=== PATIENT | male | born 1970 | race American Indian/Alaskan Native ===

== ENCOUNTER 2019-08-01 15:20 | Emergency (ER) | payer SELFPAY ==
[2019-08-01 15:29] VITALS: BP 139/92
[2019-08-01 17:24] LABS: Basophils # (Auto) 0.1 K/mm3 (0.0-0.1); Basophils % (Auto) 0.7 % (0.0-1.8); Eosinophils % (Auto) 0.4 % (0.0-4.3); Hematocrit 43.7 % (35.5-45.6); Hemoglobin 14.7 gm/dl (11.8-15.2); Lymphocytes % (Auto) 23.2 % (13.4-35.0); Mean Corpuscular HGB Conc 34 % (32-34); Mean Corpuscular Volume 99 fl (84-94); Monocytes # (Auto) 0.5 K/mm3 (0.0-0.8); Monocytes % (Auto) 6.1 % (0.0-7.3); Platelet Count 396 K/mm3 (140-440); Red Blood Count 4.42 M/mm3 (3.65-5.03); Red Cell Distribution Width 13.7 % (13.2-15.2)
[2019-08-01 17:36] LABS: Creatine Kinase MB 1.2 ng/mL (0.0-4.0)
[2019-08-01 17:38] LABS: Alanine Aminotransferase 25 units/L (7-56); Albumin 4.9 g/dL (3.9-5); BUN/Creatinine Ratio 19; Blood Urea Nitrogen 17 mg/dL (9-20); Calcium 9.2 mg/dL (8.4-10.2); Hemolysis Index 2
[2019-08-01] MEDS ORDERED: KETOROLAC 60 MG/2 ML INJ IM ONE (20:26)
[2019-08-01] MEDS ORDERED: FAMOTIDINE 20 MG TAB PO ONE (20:26)
--- NOTE | 2019-08-01 21:36 | Cat Scan Report ---
CT head/brain wo con INDICATION / CLINICAL INFORMATION: 48 years Male; fall down 3 stairs while drunk, b/l arm numbness. TECHNIQUE: Routine CT head without contrast. All CT scans at this location are performed using CT dos e reduction for ALARA by means of automated exposure control. COMPARISON: None. FINDINGS: BRAIN / INTRACRANIAL CONTENTS: No acute hemorrhage, mass effect, midline shift, hydrocephalus, or acu te, large territorial infarct. No chronic infarct or atrophy appreciated. No significant white matter abnormality. CRANIOCERVICAL JUNCTION: No significant abnormality. ORBITS: No significant abnormality of visualized orbits. SINUSES / MASTOIDS: No significant abnormality the visualized paranasal sinuses or mastoid air cells. ADDITIONAL FINDINGS: None. IMPRESSION: 1. No focal mass, hemorrhage, hydrocephalus, or acute, large territorial infarct. Signer Name: Shay Deleon MD, III Signed: 08/01/2019 9:32 PM Workstation Name: [id number]
--- NOTE | 2019-08-01 21:37 | Emergency Department Report ---
ED Syncope HPI - General Chief Complaint: Syncope Stated Complaint: FELL DOWN STAIRS Time Seen by Provider: 08/01/19 20:01 Source: patient Exam Limitations: no limitations - History of Present Illness Initial Comments: 48-year-old male with a past medical history of hypertension presents to the hospital planing of syncope versus fall last evening. Patient states he typically drinks only on weekends but since quarantine due to coronavirus has been drinking daily. He admits to having 6-10 shots last night and was intoxicated. He fell or passed out while going down 3 stairs and was found on the ground by his children. His children reported to him that they were unable to wake him and therefore they placed him in the bed. Patient woke up in the bed today with pain to shoulders, neck, posterior thoracic area as well as paresthesias/numbness to the arms and pain/right arm weakness. Patient denies headache, blurry vision, nausea vomiting, chest pain, shortness of breath, abdominal pain, lower back pain, lower extremity symptoms. Patient denies history of EtOH withdrawal tremors or seizures. Patient denies drug use. Pt is right hand dominant - Related Data Allergies/Adverse Reactions: Allergies No Known Allergies Allergy (Unverified 08/01/19 15:27) Home Medications: Ambulatory Orders Famotidine [Pepcid] 20 mg PO BID #30 tablet 08/01/19 Ibuprofen [Motrin] 600 mg PO Q8H PRN #30 tablet 08/01/19 ED Review of Systems ROS: Stated complaint: FELL DOWN STAIRS Other details as noted in HPI Comment: All other systems reviewed and negative ED Past Medical Hx - Past Medical History Previous Medical History?: Yes Hx Hypertension: Yes - Surgical History Past Surgical History?: No - Social History Smoking Status: Current Every Day Smoker Substance Use Type: None - Medications Home Medications: Home Medications Medication Instructions Recorded Confirmed Last Taken Type Famotidine [Pepcid] 20 mg PO BID #30 tablet 08/01/19 Unknown Rx Ibuprofen [Motrin] 600 mg PO Q8H PRN #30 tablet 08/01/19 Unknown Rx ED Physical Exam - General Limitations: No Limitations - Other Other exam information: General: No acute distress Head: Atraumatic Eyes: normal appearance ENT: Moist mucous membranes Neck: Normal appearance, diffuse cervical tenderness greater on the paracervical muscles and trapezius Chest: Clear to auscultation bilaterally CV: Regular rate and rhythm Abdomen: Soft, normal bowel sounds, nontender, nondistended, no rebound or guarding Back: Normal inspection, no midline lumbar tenderness. Tenderness to the paraspinal thoracic muscles/rhomboid Extremity: Normal inspection, generalized tenderness to deltoids and upper arms. Right shoulder has limited extension above 90 degrees and limited abduction greater than 90 degree due to pain at the deltoid area with movement. While lying supine patient has full range of motion of the right shoulder and is able to flex and abduct arm to 180 Neuro: Alert O x 3, equal handgrip. Right arm drift and weakness/pain with movement of the right shoulder. Patient reports paresthesias along the radial side of the dorsum of the hand bilaterally. Sensation grossly intact Psych: Appropriate behavior Skin: No rash ED Course Vital Signs 08/01/19 15:27 Temperature 97.9 F Pulse Rate 99 H Respiratory 16 Rate Blood Pressure 139/92 O2 Sat by Pulse 98 Oximetry ED Medical Decision Making - Lab Data Result diagrams: 08/01/19 16:34 08/01/19 16:34 Lab Results 08/01/19 08/01/19 Range/Units 16:34 16:34 WBC 8.6 (4.5-11.0) K/mm3 RBC 4.42 (3.65-5.03) M/mm3 Hgb 14.7 (11.8-15.2) gm/dl Hct 43.7 (35.5-45.6) % MCV 99 H (84-94) fl MCH 33 H (28-32) pg MCHC 34 (32-34) % RDW 13.7 (13.2-15.2) % Plt Count 396 (140-440) K/mm3 Lymph % (Auto) 23.2 (13.4-35.0) % [place] % (Auto) 6.1 (0.0-7.3) % Eos % (Auto) 0.4 (0.0-4.3) % Baso % (Auto) 0.7 (0.0-1.8) % Lymph # 2.0 (1.2-5.4) K/mm3 [place] # 0.5 (0.0-0.8) K/mm3 Eos # 0.0 (0.0-0.4) K/mm3 Baso # 0.1 (0.0-0.1) K/mm3 Seg Neutrophils % 69.6 (40.0-70.0) % Seg Neutrophils # 6.0 (1.8-7.7) K/mm3 Sodium 140 (137-145) mmol/L Potassium 3.7 (3.6-5.0) mmol/L Chloride 96.5 L (98-107) mmol/L Carbon Dioxide 22 (22-30) mmol/L Anion Gap 25 mmol/L BUN 17 (9-20) mg/dL Creatinine 0.9 (0.8-1.5) mg/dL Estimated GFR > 60 ml/min BUN/Creatinine Ratio 19 % Glucose 82 (75-100) mg/dL Calcium 9.2 (8.4-10.2) mg/dL Total Bilirubin 0.20 (0.1-1.2) mg/dL AST 33 (5-40) units/L ALT 25 (7-56) units/L Alkaline Phosphatase 46 (35-129) units/L Total Creatine Kinase 263 H (55-170) units/L CK-MB (CK-2) 1.2 (0.0-4.0) ng/mL CK-MB (CK-2) Rel Index 0.4 (0-4) Troponin T < 0.010 (0.00-0.029) ng/mL Total Protein 8.0 (6.3-8.2) g/dL Albumin 4.9 (3.9-5) g/dL Albumin/Globulin Ratio 1.6 % - EKG Data -: EKG Interpreted by Ri EKG shows normal: sinus rhythm, ST-T waves (No ST elevation PA) Rate: normal (65) - Radiology Data Radiology results: report reviewed CT head/brain wo con INDICATION / CLINICAL INFORMATION: 48 years Male; fall down 3 stairs while drunk, b/l arm numbness. TECHNIQUE: Routine CT head without contrast. All CT scans at this location are performed using CT dose reduction for ALARA by means of automated exposure control. COMPARISON: None. FINDINGS: BRAIN / INTRACRANIAL CONTENTS: No acute hemorrhage, mass effect, midline shift, hydrocephalus, or acute, large territorial infarct. No chronic infarct or atrophy appreciated. No significant white matter abnormality. CRANIOCERVICAL JUNCTION: No significant abnormality. ORBITS: No significant abnormality of visualized orbits. SINUSES / MASTOIDS: No significant abnormality the visualized paranasal sinuses or mastoid air cells. ADDITIONAL FINDINGS: None. IMPRESSION: 1. No focal mass, hemorrhage, hydrocephalus, or acute, large territorial infarct. CT cervical spine wo con INDICATION: fall down 3 stairs while drunk, b/l arm numbness. TECHNIQUE: All CT scans at this location are performed using the following dose modulation technique: Automated exposure control. Helical slices were obtained through the cervical spine. Coronal and sagittal reformatted images were obtained. COMPARISON: None available. FINDINGS: No fracture is seen. There is discogenic degenerative change at C3-3, C3-4, C4-5, and C5-6. There is reversal of the normal cervical lordosis in the upper cervical spine. There is facet degenerative change at C5-6 and C6-7 more prominent on the right. 2No fracture is seen. Prevertebral soft tissues are unremarkable. IMPRESSION: 1. Degenerative changes are noted. No fracture or subluxation is seen. - Medical Decision Making Patient with improved movement after Toradol. Limited movement while sitting up but FROM of right shoulder when lying supine. No symptoms of fracture. Degenerative distal changes in the cervical spine noted. Sling provided. Pain medications, Pepcid, and patient counseled to decrease alcohol use. Outpatient follow-up with PMD advised for further work-up particularly if symptoms continue Critical Care Time: No Critical care attestation.: If time is entered above; I have spent that time in minutes in the direct care of this critically ill patient, excluding procedure time. ED Disposition Clinical Impression: Fall down stairs, Pain in deltoid, Paresthesia and pain of both upper extremities, Degenerative cervical disc, Daily consumption of alcohol Disposition: DC-01 TO HOME OR SELFCARE Is pt being admited?: No Does the pt Need Aspirin: No Condition: Stable Instructions: Degenerative Disc Disease (ED), Paresthesia (ED), Musculoskeletal Pain (ED), At-Risk Alcohol Use (ED) Additional Instructions: Take the medication as prescribed. Follow-up with your doctor or doctor/clinic provided. Return if symptoms worsen as indicated by your discharge instructions. If you continues to have pain and weakness you might need outpatient MRI. Follow up with a primary care doctor for further treatment. Prescriptions: Ibuprofen [Motrin] 600 mg PO Q8H PRN #30 tablet PRN Reason: Pain Famotidine [Pepcid] 20 mg PO BID #30 tablet Referrals: PRIMARY CAREMD [Primary Care Provider] - 3-5 Days JELANI CADENA MD [Staff Physician] - 3-5 Days [facility] [Provider Group] - 3-5 Days Time of Disposition: 23:29
--- NOTE | 2019-08-01 22:42 | Cat Scan Report ---
CT cervical spine wo con INDICATION: fall down 3 stairs while drunk, b/l arm numbness. TECHNIQUE: All CT scans at this location are performed using the following dose modulation technique: Automated exposure control. Helical slices were obtained through the cervical spine. Coronal and sagittal refor matted images were obtained. COMPARISON: None available. FINDINGS: No fracture is seen. There is discogenic degenerative change at C3-3, C3-4, C4-5, and C5-6. There is reversal of the normal cervical lordosis in the upper cervical spine. There is facet degenerative montse nge at C5-6 and C6-7 more prominent on the right. 2No fracture is seen. Prevertebral soft tissues are unremarkable. IMPRESSION: 1. Degenerative changes are noted. No fracture or subluxation is seen. Signer Name: Faisal Boss MD Signed: 08/01/2019 10:37 PM Workstation Name: [id number]
== END 2019-08-02 00:18 | disposition home or self-care (01) ==
LOC: ED 15:20
DX: M50.30 Other cervical disc degeneration, unspecified cervical region (principal); M79.18 Myalgia, other site; F10.10 Alcohol abuse, uncomplicated; R20.2 Paresthesia of skin; I10 Essential (primary) hypertension; F17.200 Nicotine dependence, unspecified, uncomplicated; W10.8XXA Fall (on) (from) other stairs and steps, initial encounter; Y93.89 Activity, other specified; Y92.89 Other specified places as the place of occurrence of the external cause; Y99.8 Other external cause status
CPT/HCPCS: 36415; 70450; 72125; 80053; 82550; 82553; 84484; 85025; 93005; 96372; 99284; J1885